=== PATIENT | male | born 1955 | race Caucasian/White ===

== ENCOUNTER 2019-09-24 05:20 | Day surgery (SDC) | payer MEDICARE ==
--- NOTE | 2019-09-22 11:29 | NUR ---
T- ORAL 98.5, BP-148/79 LEFT ARM, P-71, R-18, ROOM AIR SAO2%-97
[2019-09-22 11:39] LABS: HEMATOCRIT 52.9 % (42.0-54.0); HEMOGLOBIN 17.6 g/dL (13.5-17.5); MCH 33.7 pg (26.0-34.0); MCHC 33.3 g/dL (31.0-37.0); MCV 101.1 fL (80.0-100.0); MEAN PLATELET VOLUME 9.9 fL (7.4-10.4); RBC 5.23 10x6/uL (4.20-6.10); RDW 13.9 % (11.5-14.5); WBC 5.6 10x3/uL (4.8-10.8)
[~2019-09-24] VITALS: Ht 172.7 cm; Wt 88.5 kg
--- NOTE | ~2019-09-24 | OP ---
PATIENT NAME: ALEJANDRA ENGLAND MEDICAL RECORD: [id number] LOCATION:[facility] ADMISSION DATE: SURGEON: SATNAM MARI DPM DATE OF OPERATION: 09/24/2019 PREOPERATIVE DIAGNOSIS: Plantar plate rupture, right second metatarsophalangeal joint. POSTOPERATIVE DIAGNOSES: Plantar plate rupture, right second metatarsophalangeal joint. PROCEDURES: 1. Right second Renay osteotomy. 2. Right second MPJ plantar plate repair. ANESTHESIA: General with local infiltrate utilizing lidocaine and Marcaine plain, 20 cc total around the right forefoot and second ray. HEMOSTASIS: Right thigh tourniquet at 350 mmHg. PREOPERATIVE DETAILS: The patient was taken to the OR and placed on the operating table in supine position. This was followed by induction of general anesthesia and infiltration of local anesthetic. The right extremity was then prepped and draped in the usual aseptic technique followed by exsanguination and inflation of tourniquet. A 15-blade was used to create a curvilinear incision over the dorsal aspect of the second metatarsal extending to the distal aspect of the proximal phalanx of the second digit. The incision was deepened down through subcutaneous tissue to the extensor longus tendon. The extensor longus tendon was transected in a Z-fashion and freed from the dorsal aspect of the MPJ. A linear capsulotomy was made in the second MPJ freeing the head of the second metatarsal. A McGlamry scoop elevator was used to free the plantar structures. At this time, a sagittal saw was used to create the Renay osteotomy from dorsal distal to plantar proximal. The capital fragment was moved proximally and temporarily fixated with a K-wire. PROCEDURE #2: Plantar plate repair, right second MPJ. At this time, the plantar plate was visualized and the rupture was complete with a 15-blade from the base of the second digit proximal phalanx. Once the rupture was complete, tendon Scorpion passer was used to place a FiberWire in the plantar plate. Two drill holes were made in the proximal phalanx. The FiberWire was passed up through the drill holes and at this time the Renay osteotomy was fixated putting the metatarsal back in proper anatomical alignment and length with 2 pop-off screws. The plantar plate repair was complete by holding the digit in a slightly plantarflexed position and surgeon's knots were used to secure the FiberWire passing up through the second digit proximal phalanx. Excellent reduction of the deformity and contracture was noted with the digit in the proper plane. The wound was flushed. The joint capsule was repaired with 2-0 Vicryl, the extensor longus tendon was reapproximated and repaired with 4-0 Rapide and the subcutaneous tissue was reapproximated with 4-0 Rapide and the skin was closed with 4-0 Rapide in a subcuticular technique followed by Dermabond. Adaptic, 4 x 4 and Conform were used to dress the wound followed by application of a modified Falcon compression dressing. Tourniquet was deflated. POSTOPERATIVE DETAILS: The patient tolerated the procedure well and left the OR with vital signs stable and vascular status at preoperative levels. The patient OPERATIVE REPORT [id number] ALEJANDRA ENGLAND SHERRY was transported to recovery per anesthesia in stable condition. TRANSINT:[id number] Voice Confirmation ID: [id number] DOCUMENT ID: [id number] SATNAM MARI DPM CC: [id number] DICTATION DATE: 09/24/19819 EGG GATHERER: 09/24/19 1511 [facility] 09/24/19 [facility] [address] [place] [address]
[~2019-09-24 05:20] MED LIST: EFFEXOR25 MG; LISINOPRIL5 MG PO
[2019-09-24 05:53] VITALS: BP 127/75; Ht 172.7 cm; Wt 88.5 kg
== END 2019-09-24 09:42 | disposition home or self-care (01) ==
LOC: D.OPS 05:20 → D.PAN 07:00 → D.OPS 09:42
PROVIDERS: Anesthesiology; ATTEND Podiatrist
DX: S93.524A Sprain of metatarsophalangeal joint of right lesser toe(s), initial encounter (principal); X58.XXXA Exposure to other specified factors, initial encounter; I10 Essential (primary) hypertension